=== PATIENT | male | born 1985 | race Caucasian/White ===

== ENCOUNTER 2017-01-14 16:17 | Emergency (ER) | payer OTHER ==
[~2017-01-14] VITALS: Wt 126.7 kg
[~2017-01-14 16:17] MED LIST: BEN25 PO; PERM120L5 TP
[2017-01-14] MEDS ORDERED: AZIT250T94 PO (16:35)
[2017-01-14] MEDS ORDERED: CETI10CA PO (16:36)
[2017-01-14] MEDS ORDERED: BENZ100C70 PO (16:37)
--- NOTE | 2017-01-14 16:45 | ERD ---
ER Documentation Chief Complaint Date/Time DATE: 01/14/17 TIME: 16:42 Chief Complaint COUGH WITH PHLEGM X1 MONTH HPI This is a 31-year-old male who presents to the emergency department today complaining of cough for the past several weeks. Patient states he has tried some rwdw-nau-jukhrrl medications and went to see his primary care doctor and was given 3 medications. States he are not helping. States he had intermittent fevers initially but denies any currently. States his cough is worse at night. ROS All systems reviewed and are negative except as per history of present illness. Medications Home Meds Active Scripts Benzonatate* (Tessalon Perle*) 100 Mg Capsule, 100 MG PO Q8H Y for COUGH for 7 Days, CAP Prov:GORDON CRAIN PA-C 01/14/17 Cetirizine Hcl* (Zyrtec*) 10 Mg Capsule, 10 MG PO DAILY, #14 TAB.CHEW Prov:GORDON CRAIN PA-C 01/14/17 Azithromycin* (Zithromax*) 250 Mg Tablet, 250 MG PO .ZPACK DIRECTED, #6 TAB TAKE 500 MG (2 TABS) THE FIRST DAY THEN 250 MG (1 TAB) DAYS 2-5 Prov:GORDON CRAIN PA-C 01/14/17 Permethrin (Permethrin) 118 Ml Liquid, 118 ML TP QHS for 1 Day, EA Prov:KULWINDER,CYDNEY C 04/28/16 Diphenhydramine Hcl* (Benadryl*) 25 Mg Cap, 25 MG PO Q6H Y for ITCHING for 3 Days, CAP Prov:CYDNEY MIRAMONTES 04/28/16 Allergies Allergies: Coded Allergies: No Known Allergy (Unverified , 04/28/16) PMhx/Soc Hx Alcohol Use: No Hx Substance Use: No Hx Tobacco Use: No Physical Exam Vitals Vital Signs Date Time Temp Pulse Resp B/P Pulse Ox O2 Delivery O2 Flow Rate FiO2 01/14/17 16:22 99.7 110 18 125/78 98 Physical Exam Const: Obese, no acute distress Head: Atraumatic Eyes: Normal Conjunctiva ENT: Ears TMs normal. Nose no drainage. Throat no erythema no exudate. Neck: Full range of motion..~ No meningismus. Resp: Clear to auscultation bilaterally. No absent breath sounds. No wheezing. Cardio: Regular rate and rhythm, no murmurs Abd: Soft, non tender, non distended. Normal bowel sounds Skin: No petechiae or rashes Neur: Awake and alert Psych: Normal Mood and Affect Procedures/MDM This is a 31-year-old male who presents to the emergency department today complaining of a cough for the past several weeks. Patient was seen here in the [facility] area of the emergency department. Patient had been given promethazine, Ventolin inhaler and Augmentin by his primary care doctor a few days ago. Patient is afebrile here in the emergency department. His oxygen saturation is 98%. He is tachycardic at 110. I did offer the patient a chest x-ray here in the emergency department the patient elected to be treated with medication. I will treat the patient with azithromycin for possible chronic bronchitis versus possible pneumonia as I cannot rule out at this time without a chest x-ray. I have explained this to the patient however explained to him that the azithromycin would cover him for both at this time. Given that the patient symptoms are also worse at night I have some suspicion that this may also be allergy related. Patient was also given a prescription for Zyrtec. He may continue taking the promethazine and inhaler he was prescribed by his doctor. I have also given him Tessalon Perles. Low suspicion for PE, abscess, pleural effusion, pneumothorax. At this time the patient is stable for discharge and outpatient management. Patient should follow up with their PCP in the next 1-2 days. They may return to the emergency department sooner for any persistent or worsening of symptoms. Patient understood and agreed with the plan. Departure Diagnosis: Primary Impression: Cough Condition: Fair Patient Instructions: What Is Bronchitis?, Cough, Chronic, Uncertain Cause, ( Adult) Referrals: SARA JUAREZ (PCP) Additional Instructions: Call your primary care doctor TOMORROW for an appointment during the next 1-2 days.See the doctor sooner or return here if your condition worsens before your appointment time. Take new antibiotics as prescribed Continue using inhaler Take Zyrtec as prescribed Use Tessalon Perles and promethazine syrup GORDON CRAIN PA-C Jan 14, 2017 16:45
== END 2017-01-14 17:57 | disposition home or self-care (01) ==
LOC: E/R 16:17
DX: R05 Cough (principal)
CPT/HCPCS: 99284

== ENCOUNTER 2017-07-27 18:27 | Emergency (ER) | payer OTHER ==
[~2017-07-27] VITALS: Ht 177.8 cm; Wt 129.5 kg
[~2017-07-27 18:27] MED LIST changes: +AZIT250T94 PO; +BENZ100C70 PO; +CETI10CA PO
[2017-07-27 18:51] VITALS: Ht 177.8 cm; Wt 129.5 kg
[2017-07-27] MEDS ORDERED: ACETAMINOPHEN 500 MG TAB PO STA (21:15)
[2017-07-27] MEDS ORDERED: IBUPROFEN 800 MG TAB PO ONE (21:30)
--- NOTE | 2017-07-27 22:09 | RADRPT ---
PROCEDURE: CHEST - 1 VIEW CLINICAL INDICATION: 31-year-old male with cough and fever. TECHNIQUE: A single frontal AP semi-erect portable view of the chest was performed. The images we re reviewed on a PACS workstation. COMPARISON: None. FINDINGS: The cardiomediastinal silhouette has a normal appearance. There is no evidence for an infiltrate. There is no evidence for congestive heart failure. There is no evidence for pneumothorax. The osseou s structures are intact. IMPRESSION: No evidence for active cardiopulmonary disease. .Dilan Wolff MD, MD Date Time Electronically viewed and signed by .Dilan Wolff MD, on 07/27/2017 22:09 .Domonique/
[2017-07-27] MEDS ORDERED: D-ME473S18 PO (22:24)
[2017-07-27] MEDS ORDERED: AZIT250T94 PO (22:24)
[2017-07-27] MEDS ORDERED: ACET500C5 PO (22:24)
[2017-07-27] MEDS ORDERED: IBUP800T25 PO (22:24)
[2017-07-27] MEDS ORDERED: BENZ100C70 PO (22:24)
[2017-07-27 22:45] VITALS: BP 127/68; PULSE 88; RESP 16; TEMP 98.7
--- NOTE | 2017-07-27 23:49 | ERD ---
ER Documentation Chief Complaint Date/Time DATE: 07/27/17 TIME: 23:43 Chief Complaint cough x 2 days HPI 31-year-old male coming in complaining of fever and cough 2 days. Patient has diffuse body aches with nasal congestion mild sore throat. Patient's sister has similar symptoms. Denies abdominal pain. Denies vomiting. Denies neck pain. Denies severe headache. Has not taken medications for symptoms. ROS All systems reviewed and are negative except as per history of present illness. Medications Home Meds Active Scripts Dextromethorphan Hb-Promethazine Hcl (Promethazine DM Syrup) 473 Ml Syrup, 5 ML PO Q6H Y for COUGH, #4 OZ Prov:EMANUEL CRABTREEC 07/27/17 Benzonatate* (Tessalon Perle*) 100 Mg Capsule, 100 MG PO Q8H Y for COUGH, #30 CAP Prov:EMANUEL CRABTREEC 07/27/17 Azithromycin* (Zithromax*) 250 Mg Tablet, 250 MG PO .ZPACK DIRECTED, #6 TAB TAKE 500 MG (2 TABS) THE FIRST DAY THEN 250 MG (1 TAB) DAYS 2-5 Prov:EMANUEL CRABTREE-C 07/27/17 Ibuprofen* (Motrin*) 800 Mg Tab, 800 MG PO Q6, #30 TAB Prov:EMANUEL CRABTREE-C 07/27/17 Acetaminophen* (Tylophen*) 500 Mg Capsule, 2 CAP PO Q8H Y for PAIN AND OR ELEVATED TEMP, #20 CAP Prov:EMANUEL CRABTREEC 07/27/17 Benzonatate* (Tessalon Perle*) 100 Mg Capsule, 100 MG PO Q8H Y for COUGH for 7 Days, CAP Prov:GORDON CRAINC 01/14/17 Cetirizine Hcl* (Zyrtec*) 10 Mg Capsule, 10 MG PO DAILY, #14 TAB.CHEW Prov:GORDON CRAIN-C 01/14/17 Azithromycin* (Zithromax*) 250 Mg Tablet, 250 MG PO .ZPACK DIRECTED, #6 TAB TAKE 500 MG (2 TABS) THE FIRST DAY THEN 250 MG (1 TAB) DAYS 2-5 Prov:PARASGORDON YoussefCarmel REHMAN 01/14/17 Permethrin (Permethrin) 118 Ml Liquid, 118 ML TP QHS for 1 Day, EA Prov:CYDNEY MIRAMONTES 04/28/16 Diphenhydramine Hcl* (Benadryl*) 25 Mg Cap, 25 MG PO Q6H Y for ITCHING for 3 Days, CAP Prov:CYDNEY MIRAMONTES 04/28/16 Allergies Allergies: Coded Allergies: No Known Allergy (Unverified , 04/28/16) PMhx/Soc Medical and Surgical Hx: pt denies Medical Hx, pt denies Surgical Hx Hx Alcohol Use: No Hx Substance Use: No Hx Tobacco Use: No Smoking Status: Never smoker Physical Exam Vitals Vital Signs Date Time Temp Pulse Resp B/P Pulse Ox O2 Delivery O2 Flow Rate FiO2 07/27/17 22:45 98.7 88 16 127/68 98 Room Air 07/27/17 18:51 100.9 110 20 135/77 98 Physical Exam GENERAL: The patient is well-appearing, well-nourished, in no acute distress HEENT: Atraumatic. Conjunctivae are pink. Pupils equal, round, and reactive to light. There is no scleral icterus. Tympanic membranes clear bilaterally. Oropharynx clear. No nystagmus or photophobia. NECK: C-spine is soft and supple. There is no meningismus. There is no cervical lymphadenopathy. No JVD. No bruits. No goiter. CHEST: Clear to auscultation bilaterally. There are no rales, wheezes or rhonchi. HEART: Regular rate and rhythm. No murmurs, clicks, rubs or gallops. No S3 or S4. ABDOMEN:Soft, nontender and nondistended. Good bowel sounds. No rebound or guarding. No gross peritonitis. No gross organomegaly or masses. No Padilla sign or McBurney point tenderness. BACK: No midline or flank tenderness. Results 24 hrs Current Medications Medications (Trade) Dose Ordered Sig/Natividad Route PRN Reason Start Time Stop Time Status Last Admin Dose Admin Acetaminophen (Tylenol Tab) 1,000 mg ONCE STAT PO 07/27/17 21:15 07/27/17 21:16 DC 07/27/17 21:23 Ibuprofen (Motrin) 800 mg ONCE ONCE PO 07/27/17 21:30 07/27/17 21:31 DC 07/27/17 21:23 Procedures/MDM DIAGNOSTIC IMAGING REPORT Patient: NATASHA BROWN : 1985 Age: 31 Sex: M MR #: [id number] [facility] #: [id number] DOS: 07/27/17 2108 Ordering MD: MARIO CRABTREE PA-C Location: [facility] Room/Bed: PROCEDURE: CHEST - 1 VIEW CLINICAL INDICATION: 31-year-old male with cough and fever. TECHNIQUE: A single frontal AP semi-erect portable view of the chest was performed. The images were reviewed on a PACS workstation. COMPARISON: None. FINDINGS: The cardiomediastinal silhouette has a normal appearance. There is no evidence for an infiltrate. There is no evidence for congestive heart failure. There is no evidence for pneumothorax. The osseous structures are intact. IMPRESSION: No evidence for active cardiopulmonary disease. ER Course: Flu swab negative. Patient given Tylenol in the ED MDM: 31-year-old male coming in complaining of fever with dry cough. I have low suspicion for pneumonia as patient's chest x-ray is within normal limits. I have low suspicion for meningitis or sepsis. Patient is nontoxic-appearing. I have low suspicion for bacterial HEENT infection. I have low suspicion for endocarditis or myocarditis. Patient's cardiac sounds are within normal limits. Patient has complaints of nasal congestion with diffuse body aches. I feel the patient likely has a viral syndrome. I have low suspicion for acute abdominal emergency. Patient's exam is non-concerning. Patient will be discharged with strict ER precautions and recommended to follow-up with primary care within 1-2 days for re-evaluation Departure Diagnosis: Primary Impression: Fever Additional Impression: Cough Condition: Stable Patient Instructions: Cough, Chronic, Uncertain Cause, (Adult), Fever Control ( Adult) Additional Instructions: FOLLOW UP WITH YOUR PRIMARY CARE PHYSICIAN TOMORROW.Return to this facility if you are not improving as expected. EMANUEL CRABTREE PA-C Jul 27, 2017 23:49
== END 2017-07-27 22:46 | disposition home or self-care (01) ==
LOC: FTE 18:27
DX: R50.9 Fever, unspecified (principal)
CPT/HCPCS: 71010; 87400; Z7502; Z7610

== ENCOUNTER 2017-08-14 21:37 | Emergency (ER) | payer OTHER ==
[~2017-08-14] VITALS: Ht 177.8 cm; Wt 130.0 kg
[~2017-08-14 21:37] MED LIST changes: +ACET500C5 PO; +D-ME473S18 PO; +IBUP800T25 PO
[2017-08-14 21:44] VITALS: Ht 177.8 cm; Wt 130.0 kg
--- NOTE | 2017-08-14 23:42 | ERD ---
ER Documentation Chief Complaint Date/Time DATE: 08/14/17 TIME: 23:39 Chief Complaint sp fall from 2 steps stairs, right ankle pain/ swelling HPI 31-year-old male presents to emergency department for complaints of right ankle pain and swelling after twisting while walking down the stairs 4 hours ago, patient twisted it upon falling down. Patient describes the pain as sharp pain, 6/10 scale, is worse upon movement. Patient took ibuprofen for pain with mild relief. Patient denies any numbness or tingling. Patient denies any deformity. ROS All systems reviewed and are negative except as per history of present illness. Medications Home Meds Active Scripts Dextromethorphan Hb-Promethazine Hcl (Promethazine DM Syrup) 473 Ml Syrup, 5 ML PO Q6H Y for COUGH, #4 OZ Prov:EMANUEL CRABTREE PA-C 07/27/17 Benzonatate* (Tessalon Perle*) 100 Mg Capsule, 100 MG PO Q8H Y for COUGH, #30 CAP Prov:EMANUEL CRABTREE PA-C 07/27/17 Azithromycin* (Zithromax*) 250 Mg Tablet, 250 MG PO .ZPACK DIRECTED, #6 TAB TAKE 500 MG (2 TABS) THE FIRST DAY THEN 250 MG (1 TAB) DAYS 2-5 Prov:EMANUEL CRABTREE PA-C 07/27/17 Ibuprofen* (Motrin*) 800 Mg Tab, 800 MG PO Q6, #30 TAB Prov:EMANUEL CRABTREE PA-C 07/27/17 Acetaminophen* (Tylophen*) 500 Mg Capsule, 2 CAP PO Q8H Y for PAIN AND OR ELEVATED TEMP, #20 CAP Prov:EMANUEL CRABTREE PA-C 07/27/17 Benzonatate* (Tessalon Perle*) 100 Mg Capsule, 100 MG PO Q8H Y for COUGH for 7 Days, CAP Prov:GORDON CRAIN PA-C 01/14/17 Cetirizine Hcl* (Zyrtec*) 10 Mg Capsule, 10 MG PO DAILY, #14 TAB.CHEW Prov:GORDON CRAIN PA-C 01/14/17 Azithromycin* (Zithromax*) 250 Mg Tablet, 250 MG PO .ZPACK DIRECTED, #6 TAB TAKE 500 MG (2 TABS) THE FIRST DAY THEN 250 MG (1 TAB) DAYS 2-5 Prov:GORDON CRAIN PA-C 01/14/17 Permethrin (Permethrin) 118 Ml Liquid, 118 ML TP QHS for 1 Day, EA Prov:CYDNEY MIRAMONTES C 04/28/16 Diphenhydramine Hcl* (Benadryl*) 25 Mg Cap, 25 MG PO Q6H Y for ITCHING for 3 Days, CAP Prov:CYDNEY MIRAMONTES C 04/28/16 Allergies Allergies: Coded Allergies: No Known Allergy (Unverified , 04/28/16) PMhx/Soc Medical and Surgical Hx: pt denies Medical Hx, pt denies Surgical Hx History of Surgery: No Anesthesia Reaction: No Hx Neurological Disorder: No Hx Respiratory Disorders: No Hx Cardiac Disorders: No Hx Psychiatric Problems: No Hx Miscellaneous Medical Probl: No Hx Alcohol Use: No Hx Substance Use: No Hx Tobacco Use: No Smoking Status: Never smoker FmHx Family History: No coronary disease, No diabetes, No other Physical Exam Vitals Vital Signs Date Time Temp Pulse Resp B/P Pulse Ox O2 Delivery O2 Flow Rate FiO2 08/14/17 21:44 97.8 101 20 131/70 100 Physical Exam GENERAL: The patient is well developed and appropriate for usual state of health, in no apparent distress. CHEST: Clear to auscultation bilaterally. There are no rales, wheezes or rhonchi. HEART: Regular rate and rhythm. No murmurs, clicks, rubs or gallops. No S3 or S4. ABDOMEN: Soft, nontender and nondistended. Good bowel sounds. No rebound or guarding. No gross peritonitis. No gross organomegaly or masses. No Padilla sign or McBurney point tenderness. BACK: No midline or flank tenderness. EXTREMITIES: Tenderness on palpation on the lateral malleolus of the right ankle , mild swelling noted, and patient movement because of pain and swelling. No deformity noted. Equal pulses bilaterally. There is no peripheral clubbing, cyanosis or edema. No focal swelling or erythema. Full range of motion of other joints of the body. Grossly neurovascularly intact. NEURO: Alert and oriented. Cranial nerves 2-12 intact. Motor strength in all 4 extremities with 5/5 strength. Sensation grossly intact. Normal speech and gait. SKIN: There is no apparent rash or petechia. The skin is warm and dry. HEMATOLOGIC AND LYMPHATIC: There is no evidence of excessive bruising or lymphedema. No gross cervical, axillary, or inguinal lymphadenopathy. Results 24 hrs Patient was given medication for pain here in emergency department, after treatment, patient verbalized feeling much better. Patient's pain is improved. PROCEDURE: XR Ankle. CLINICAL INDICATION: Right ankle pain. TECHNIQUE: Three views of the right ankle were performed. COMPARISON: None. FINDINGS: No acute fracture or dislocation is seen. The ankle mortise is symmetric. No radiopaque foreign body is identified. Mild ankle soft tissue swelling is noted. IMPRESSION: 1. No acute fracture or dislocation. 2. Mild ankle soft tissue swelling. RPTAT: HFN .Contreras Holland MD, MD Date Time Electronically viewed and signed by .oCntreras Holland MD, MD on 08/14/2017 23: 55 .N/ CC: MALICK NEUMANN NP PROCEDURE: XR Foot. CLINICAL INDICATION: Right foot pain TECHNIQUE: Three views of the right foot are available for review. COMPARISON: None available FINDINGS: No acute fracture or dislocation is seen. No radiopaque foreign body is identified. No significant soft tissue swelling is noted. IMPRESSION: 1. No acute fracture or dislocation. RPTAT: HFN .Contreras Holland MD, MD Date Time Electronically viewed and signed by .Contreras Holland MD, MD on 08/14/2017 23: 56 .N/ C: MALICK NEUMANN NP After receiving patients xray report, an Mumtaz wrap was applied on the patients right ankle. After application of the Mumtaz wrap, patient has intact sensation and circulation on distal area of the affected joint. Patient does not complain of numbness or tingling after application of the Mumtaz wrap. Patient tolerated procedure well. Crutches was given to use afterwards Procedures/MDM Medical Decision Making: Patient's pain is most likely consistent with a foot and ankle sprain. There is no suspicion for neurovascular compromise. Patient has intact sensation and circulation of the affected extremity. There is low suspicion for septic arthritis. Patient does not have any fever. Radiology exams of the affected area does not show any fracture or dislocation. Disposition: Home. Patient is given prescription for ibuprofen for pain, Valmora for severe pain. Patient was advised to elevate the affected area and apply ice on affected area. Patient was advised that if symptoms are worse, numbness, tingling, high fever, unable to move joint, worsening symptoms, to return to emergency department immediately. Otherwise, patient is advised to follow up with the primary care doctor in 5-7 days for reevaluation of symptoms. Departure Diagnosis: Primary Impression: Foot sprain Encounter type: initial encounter Laterality: right Qualified Code: S93.601A - Sprain of right foot, initial encounter Additional Impression: Ankle sprain Encounter type: initial encounter Involved ligament of ankle: unspecified ligament Laterality: right Qualified Code: S93.401A - Sprain of right ankle , unspecified ligament, initial encounter Condition: Stable Patient Instructions: Self-Care for Strains and Sprains, Sprain Foot, Treating Ankle Sprains Additional Instructions: Patient is given prescription for ibuprofen for pain, Valmora for severe pain. Patient was advised to elevate the affected area and apply ice on affected area. Patient was advised that if symptoms are worse, numbness, tingling, high fever, unable to move joint, worsening symptoms, to return to emergency department immediately. Otherwise, patient is advised to follow up with the primary care doctor in 5-7 days for reevaluation of symptoms. MALICK NEUMANN NP Aug 14, 2017 23:42
--- NOTE | 2017-08-14 23:56 | RADRPT ---
PROCEDURE: XR Ankle. CLINICAL INDICATION: Right ankle pain. TECHNIQUE: Three views of the right ankle were performed. COMPARISON: None. FINDINGS: No acute fracture or dislocation is seen. The ankle mortise is symmetric. No radiopaque foreign body is identified. Mild ankle soft tissue swelling is noted. IMPRESSION: 1. No acute fracture or dislocation. 2. Mild ankle soft tissue swelling. RPTAT: HFN .Contreras Holland MD, MD Date Time Electronically viewed and signed by .Contreras Holland MD, MD on 08/14/2017 23:55 .N/
--- NOTE | 2017-08-14 23:56 | RADRPT ---
PROCEDURE: XR Foot. CLINICAL INDICATION: Right foot pain TECHNIQUE: Three views of the right foot are available for review. COMPARISON: None available FINDINGS: No acute fracture or dislocation is seen. No radiopaque foreign body is identified. No significant soft tissue swelling is noted. IMPRESSION: 1. No acute fracture or dislocation. RPTAT: HFN .Contreras Holland MD, Date Time Electronically viewed and signed by .Contreras Holland MD, MD on 08/14/2017 23:56 .N/
[2017-08-15] MEDS ORDERED: HYDR-906 PO (00:53)
[2017-08-15] MEDS ORDERED: IBUP-1542 PO (00:53)
== END 2017-08-15 01:20 | disposition home or self-care (01) ==
LOC: FTE 21:37
DX: S93.601A Unspecified sprain of right foot, initial encounter (principal); S93.401A Sprain of unspecified ligament of right ankle, initial encounter; W10.9XXA Fall (on) (from) unspecified stairs and steps, initial encounter; Y92.9 Unspecified place or not applicable
CPT/HCPCS: 73610; 73630; Z7502